=== PATIENT | female | born 1990 | race Caucasian/White ===

== ENCOUNTER 2020-11-15 14:34 | Outpatient (CLI) | payer OTHER ==
[~2020-11-15] VITALS: Ht 157.5 cm; Wt 102.3 kg
[2020-11-15 15:00] VITALS: BP 134/75
[2020-11-15 15:13] LABS: MICROSCOPIC INDICATED
[2020-11-15 15:40] LABS: BASOPHILS % (AUTO) 0 % (0-1); EOSINOPHILS % (AUTO) 0 % (1-7); LYMPHOCYTES % (AUTO) 16 % (22-44); MEAN CORPUSCULAR HEMOGLOBIN 31.1 pg (27.0-34.8); MEAN CORPUSCULAR HGB CONC 34.1 g/dL (32.4-35.8); MEAN PLATELET VOLUME 9.4 fL (7.4-10.4); MONOCYTES % (AUTO) 7 % (2-9); NEUTROPHILS % (AUTO) 76 % (42-75); PLATELET COUNT 209 x10^3/uL (130-400); RED BLOOD COUNT 3.84 x10^6/uL (3.82-5.3); RED CELL DISTRIBUTION WIDTH 13.7 % (9.6-15.2)
[2020-11-15 15:42] LABS: MD NO
[2020-11-15 15:46] LABS: ALANINE AMINOTRANSFERASE 29 U/L (12-78); ALBUMIN 2.5 g/dL (3.4-5.0); ANION GAP 10 mmol/L (5-15); CALCIUM 8.3 mg/dL (8.5-10.1); CHLORIDE 108 mmol/L (98-107); CREATININE 0.62 mg/dL (0.55-1.02)
[2020-11-15 15:47] LABS: BILIRUBIN, DIRECT < 0.1 mg/dL (0.1-0.2)
[2020-11-15 15:49] LABS: ALKALINE PHOSPHATASE 125 U/L (45-117); BILIRUBIN,TOTAL 0.2 mg/dL (0.2-1.0); TOTAL PROTEIN 6.5 g/dL (6.4-8.2)
[2020-11-15 15:51] LABS: CREATININE,URINE RANDOM 29.4 mg/dL
[2020-11-15] MEDS ORDERED: PREN1TAB60 PO (16:04)
== END 2020-11-15 16:24 | disposition home or self-care (01) ==
LOC: LDOP 14:34
PROVIDERS: ATTEND Obstetrics & Gynecology Maternal & Fetal Medicine
DX: O16.3 Unspecified maternal hypertension, third trimester (principal); Z3A.37 37 weeks gestation of pregnancy
CPT/HCPCS: 36415; 59025; 80053; 81001; 82248; 82570; 84156; 84550; 85025; 87086

== ENCOUNTER 2020-11-30 17:09 | Inpatient (IN) | payer OTHER ==
[~2020-11-30] VITALS: Ht 157.5 cm; Wt 102.2 kg
[~2020-11-30 17:09] MED LIST: PREN1TAB60 PO
[2020-12-06] MEDS ORDERED: FENTANYL PF 100 MCG/2ML IVPush PRN (06:30)
[2020-12-06] MEDS: LACTATED RINGERS 1,000 ML IV SCH ×3 (06:30→22:30)
[2020-12-06] MEDS ORDERED: OXYTOCIN 30U/ 0.9% NaCL 500ML 500 ML IV PRN ×2 (06:30→18:30)
[2020-12-06] MEDS: D5%-LACTATED RINGERS 1,000 ML IV SCH ×3 (06:30→22:30)
[2020-12-06] MEDS ORDERED: METOCLOPRAMIDE 5 MG/ML, 2ML IVPush PRN (06:30)
[2020-12-06] MEDS ORDERED: OXYTOCIN 30U/ 0.9% NaCL 500ML 500 ML IV ONE (06:30)
[2020-12-06] MEDS ORDERED: ONDANSETRON 2MG/ML, 2ML IVPush PRN (06:30)
[2020-12-06] MEDS ORDERED: FENTANYL PF 100 MCG/2ML IV PRN (06:30)
[2020-12-06] MEDS ORDERED: SODIUM CITRATE/CITRIC ACID 30 ML UDC PO PRN (06:30)
[2020-12-06] MEDS ORDERED: TERBUTALINE 1 MG/ML, 1ML SQ PRN (06:30)
[2020-12-06] MEDS ORDERED: TERBUTALINE 1 MG/ML, 1ML IVPush PRN (06:30)
[2020-12-06] MEDS ORDERED: CALCIUM CARBONATE 500 MG TAB.CHEW PO PRN (06:30)
[2020-12-06] MEDS ORDERED: NEWBORN KIT ONE (06:33)
[2020-12-06 06:44] LABS: BASOPHILS % (AUTO) 0 % (0-1); EOSINOPHILS % (AUTO) 1 % (1-7); LYMPHOCYTES % (AUTO) 20 % (22-44); MEAN CORPUSCULAR HEMOGLOBIN 31.5 pg (27.0-34.8); MEAN CORPUSCULAR HGB CONC 34.5 g/dL (32.4-35.8); MEAN PLATELET VOLUME 9.5 fL (7.4-10.4); MONOCYTES % (AUTO) 6 % (2-9); NEUTROPHILS % (AUTO) 73 % (42-75); PLATELET COUNT 210 x10^3/uL (130-400); RED BLOOD COUNT 3.81 x10^6/uL (3.82-5.3); RED CELL DISTRIBUTION WIDTH 13.8 % (9.6-15.2)
[2020-12-06 06:45] LABS: MD NO
[2020-12-06] MEDS: MISOPROSTOL 25 MCG TABLET VG PRN ×2 (07:00→11:02)
[2020-12-06 21:30] VITALS: BP 139/84
[2020-12-07] MEDS: D5%-LACTATED RINGERS 1,000 ML IV SCH ×3 (06:30→22:30)
[2020-12-07] MEDS: LACTATED RINGERS 1,000 ML IV SCH ×5 (06:30→22:30)
[2020-12-07] MEDS ORDERED: BUPIVACAINE 0.25% ONE (13:41)
[2020-12-07] MEDS ORDERED: FENTANYL/BUPIV./NS/PF 250 ML EPIDCONT SCH (14:00)
[2020-12-07] MEDS ORDERED: NALOXONE 0.4 MG/ML, 1ML IVPush PRN (14:00)
[2020-12-07] MEDS ORDERED: LACTATED RINGERS 1,000 ML IVBOLUS PRN (14:00)
[2020-12-07] MEDS ORDERED: EPHEDRINE 50 MG/ML, 1ML IVPush PRN ×2 (14:00→20:30)
[2020-12-07] MEDS ORDERED: hydrALAzine 20 MG/ML, 1ML IV PRN (20:30)
[2020-12-07] MEDS ORDERED: HYDROcodone/APAP 7.5-325MG/15ML UDC PO PRN (20:30)
[2020-12-07] MEDS ORDERED: FENTANYL PF 100 MCG/2ML IV PRN (20:30)
[2020-12-07] MEDS ORDERED: METOPROLOL 1 MG/ML, 5ML IV PRN (20:30)
[2020-12-07] MEDS ORDERED: ALBUTEROL SULFATE 2.5 MG/3 ML NPPB PRN (20:30)
[2020-12-07] MEDS ORDERED: hydrALAzine 20 MG/ML, 1ML IVPush PRN (20:30)
[2020-12-07] MEDS ORDERED: OXYcodone 5 MG/5 ML ORAL.SOL UDC PO PRN (20:30)
[2020-12-07] MEDS ORDERED: PROMETHAZINE 25 MG/ML, 1ML IV PRN (20:30)
[2020-12-07] MEDS ORDERED: MIDAZOLAM 1 MG/ML, 2ML IV PRN (20:30)
[2020-12-07] MEDS ORDERED: MEPERIDINE/PF 25MG/0.5ML IVPush PRN (20:30)
[2020-12-07] MEDS ORDERED: HYDROmorphone 2 MG/ML, 1ML IVPush PRN (20:30)
[2020-12-07] MEDS ORDERED: LABETALOL 5MG/ML, 20ML IV PRN (20:30)
[2020-12-07] MEDS ORDERED: ONDANSETRON 2MG/ML, 2ML IVPush PRN (20:30)
[2020-12-07] MEDS ORDERED: SODIUM CITRATE/CITRIC ACID 15 ML UDC ONE (22:40)
[2020-12-07] MEDS ORDERED: SODIUM CITRATE/CITRIC ACID 30 ML UDC PO ONE (23:00)
[2020-12-07] MEDS ORDERED: AZITHROMYCIN 500 MG in SODIUM CHLORIDE 0.9% 250 ML IV ONE (23:00)
[2020-12-07] MEDS ORDERED: METOCLOPRAMIDE 5 MG/ML, 2ML IVPush ONE (23:00)
[2020-12-08] MEDS ORDERED: DEXAMETHASONE 4 MG/ML, 1ML ONE (01:24)
[2020-12-08] MEDS ORDERED: ONDANSETRON 2MG/ML, 2ML ONE (01:24)
[2020-12-08] MEDS ORDERED: PROPOFOL 10 MG/ML, 20ML ONE (01:24)
[2020-12-08] MEDS ORDERED: EPHEDRINE 50 MG/ML, 1ML ONE (01:24)
[2020-12-08] MEDS ORDERED: SUCCINYLCHOLINE 20 MG/ML, 10ML ONE (01:24)
[2020-12-08] MEDS ORDERED: PHENYLEPHRINE 10 MG/ML ONE (01:24)
[2020-12-08] MEDS ORDERED: OXYTOCIN 10 UNITS/ML, 1ML ONE (01:24)
[2020-12-08] MEDS ORDERED: CEFAZOLIN 1,000 MG ONE (01:24)
[2020-12-08] MEDS ORDERED: KETOROLAC 30 MG/1 ML ONE (01:24)
[2020-12-08] MEDS ORDERED: FENTANYL PF 100 MCG/2ML ONE ×2 (01:25)
[2020-12-08] MEDS ORDERED: morphine SULFATE/PF 0.5 MG/ML, 10ML ONE (01:32)
[2020-12-08] MEDS ORDERED: ONDANSETRON 2MG/ML, 2ML IV PRN (03:00)
[2020-12-08] MEDS ORDERED: KETOROLAC 30 MG/1 ML IV SCH (03:00)
[2020-12-08] MEDS ORDERED: METHYLERGONOVINE 0.2 MG/ML IM PRN (03:00)
[2020-12-08] MEDS ORDERED: MISOPROSTOL 200 MCG TABLET PR PRN (03:00)
[2020-12-08] MEDS ORDERED: CARBOPROST TROMETHAMINE 250 MCG/ML, 1ML IM PRN (03:00)
[2020-12-08] MEDS: OXYTOCIN 30U/ 0.9% NaCL 500ML 500 ML IV SCH ×2 (03:00→13:00)
[2020-12-08] MEDS: LACTATED RINGERS 1,000 ML IV SCH ×4 (03:00→13:00)
[2020-12-08] MEDS ORDERED: ACETAMINOPHEN 325 MG TABLET PO PRN (03:00)
[2020-12-08 04:22] VITALS: BP 118/77
[2020-12-08 07:35] VITALS: BP 113/71
[2020-12-08] MEDS: KETOROLAC 30 MG/1 ML IV SCH ×3 (08:47→20:28)
[2020-12-08] MEDS: PRENATAL VIT/IRON/FA 1 EACH TABLET PO SCH (09:00)
[2020-12-08] MEDS: OXYcodone IR 5MG TABLET PO PRN (09:46)
[2020-12-08 10:13] LABS: BASOPHILS % (AUTO) 0 % (0-1); EOSINOPHILS % (AUTO) 0 % (1-7); LYMPHOCYTES % (AUTO) 7 % (22-44); MEAN CORPUSCULAR HEMOGLOBIN 30.8 pg (27.0-34.8); MEAN PLATELET VOLUME 9.6 fL (7.4-10.4); MONOCYTES % (AUTO) 6 % (2-9); NEUTROPHILS % (AUTO) 87 % (42-75); PLATELET COUNT 181 x10^3/uL (130-400); RED CELL DISTRIBUTION WIDTH 13.4 % (9.6-15.2)
[2020-12-08 10:37] LABS: MD SCAN
[2020-12-08 12:00] VITALS: BP 113/71
[2020-12-08 16:17] VITALS: BP 107/72
[2020-12-08 19:15] VITALS: BP 120/82
[2020-12-08] MEDS: DOCUSATE 100 MG CAPSULE PO PRN (20:28)
[2020-12-08] MEDS: SIMETHICONE 80 MG CHEW TAB PO PRN (20:28)
[2020-12-09] VITALS: BP 125/84
[2020-12-09] MEDS: KETOROLAC 30 MG/1 ML IV SCH ×4 (02:36→20:19)
[2020-12-09] MEDS: OXYcodone IR 5MG TABLET PO PRN (02:37)
[2020-12-09 07:30] VITALS: BP 110/75
[2020-12-09] MEDS ORDERED: FERROUS GLUCONATE 324 MG TABLET ONE (08:08)
[2020-12-09] MEDS: SIMETHICONE 80 MG CHEW TAB PO PRN ×2 (08:29→14:48)
[2020-12-09] MEDS: PRENATAL VIT/IRON/FA 1 EACH TABLET PO SCH (08:29)
[2020-12-09] MEDS: DOCUSATE 100 MG CAPSULE PO PRN ×2 (08:29→20:19)
[2020-12-09] MEDS: OXYcodone/APAP 5/325MG TABLET PO PRN ×2 (13:07→17:38)
[2020-12-09] MEDS: FERROUS GLUCONATE 324 MG TABLET PO SCH (17:37)
[2020-12-09 19:00] VITALS: BP 128/86
[2020-12-10] MEDS: KETOROLAC 30 MG/1 ML IV SCH (02:26)
[2020-12-10] MEDS: OXYcodone/APAP 5/325MG TABLET PO PRN ×4 (04:34→19:37)
[2020-12-10 07:45] VITALS: BP 123/83
[2020-12-10] MEDS: PRENATAL VIT/IRON/FA 1 EACH TABLET PO SCH (08:19)
[2020-12-10] MEDS: IBUPROFEN 600 MG TABLET PO PRN ×3 (08:19→22:50)
[2020-12-10] MEDS: DOCUSATE 100 MG CAPSULE PO PRN ×2 (08:19→19:38)
[2020-12-10] MEDS: SIMETHICONE 80 MG CHEW TAB PO PRN (08:19)
[2020-12-10] MEDS: FERROUS GLUCONATE 324 MG TABLET PO SCH (17:59)
[2020-12-10 20:00] VITALS: BP 119/77
[2020-12-11] MEDS: OXYcodone/APAP 5/325MG TABLET PO PRN (03:42)
[2020-12-11] MEDS: DOCUSATE 100 MG CAPSULE PO PRN (07:25)
[2020-12-11] MEDS: PRENATAL VIT/IRON/FA 1 EACH TABLET PO SCH (07:25)
[2020-12-11] MEDS: IBUPROFEN 600 MG TABLET PO PRN (07:25)
[2020-12-11 07:57] VITALS: BP 130/85
[2020-12-11] MEDS ORDERED: FERR325T16 PO (08:23)
[2020-12-11] MEDS ORDERED: IBUP-1222 PO (08:23)
[2020-12-11] MEDS ORDERED: DOCU-131 PO (08:23)
[2020-12-11] MEDS ORDERED: OXYC1TAB14 PO (08:23)
== END 2020-12-11 11:30 | disposition home or self-care (01) | DRG 788 ==
LOC: LDIP 12-06 06:08 → 2NW 12-08 03:54
PROVIDERS: ADMIT Obstetrics & Gynecology Maternal & Fetal Medicine; ATTEND Obstetrics & Gynecology Maternal & Fetal Medicine
PROC: 10D00Z1 Extraction of Products of Conception, Low, Open Approach (ICD-10-PCS; principal; 2020-12-08)
DX: O40.3XX0 Polyhydramnios, third trimester, not applicable or unspecified (principal); O48.0 Post-term pregnancy; O62.2 Other uterine inertia; Z20.822 Contact with and (suspected) exposure to COVID-19; Z37.0 Single live birth; Z3A.41 41 weeks gestation of pregnancy; Z79.899 Other long term (current) drug therapy; O90.81 Anemia of the puerperium
CPT/HCPCS: 36415; 85025; 86592; 86850; 86900; 87635; 87806; G0378; J0690; J1100; J1885; J2274; J2405; J2704; J3010; G0475; J0330; J2370; J2590; J2765; J7120